=== PATIENT | female | born 1980 | race Caucasian/White ===

== ENCOUNTER 2017-10-27 16:10 | Day surgery (SDC) | payer OTHER ==
[2017-10-27 17:44] VITALS: BMI 27.4
[2017-10-27 17:55] LABS: Amnisure Internal Control QC ACCEPTABLE (ACCEPTABLE)
[2017-10-27 17:56] LABS: Amnisure Test No Membranes Rupture (No Rupture)
--- NOTE | 2017-10-27 19:16 | PRG ---
DATE OF SERVICE: 10/27/2017 OB ER ENCOUNTER PRIMARY HORTICULTURE SUPERVISOR: Dr. Harper Dyer MD CHIEF COMPLAINT: Diarrhea and abdominal pains. HISTORY OF PRESENT ILLNESS: The patient is a 37-year-old G1, P0 female with an intrauterine pregnanc y at 37 weeks and 5 days who is presenting to Labor and Delivery after experiencing for the last padmaja ral days loose stools that occurred about twice a day. The patient denies any sick contacts, fever, illness, any blood in her stool. The patient denies any nausea or vomiting, any fever, any chest lavell n. She has been experiencing some shortness of breath that she just attributes to the . Sh maynor does report that she has a rash on her arm that has been there for the last month or so. It does n ot itch and it just had some spots. The patient denies vaginal bleeding. She does report leaking fl uid for the last 3 weeks that she describes as water. PAST MEDICAL HISTORY: She has a history of migraines. PAST SURGICAL HISTORY: Negative. SOCIAL HISTORY: Denies drug, alcohol or tobacco use. ALLERGIES: No known drug allergies. MEDICATIONS: vitamins. OB LABS: Blood type, B positive. Diabetes screen, 142. Three-hour GTT with 1 abnormal finding. GB S unavailable. HIV nonreactive. Hepatitis B surface antigen nonreactive. She is RPR nonreactive, a ll in the first trimester. REVIEW OF SYSTEMS: Per HPI. PHYSICAL EXAMINATION: VITAL SIGNS: Blood pressure 105/64, heart rate of 75, respiratory rate of 16, temperature 97.6. GENERAL: She appears to be in no acute distress. She is alert and oriented, cooperative and pleasan t to interact with. HEENT: Normocephalic, atraumatic. CHEST: Clear to auscultation bilaterally. HEART: Regular rate and rhythm. ABDOMEN: Soft. She does have some tenderness consistent with ligament pain as she is tender with de viation of the uterus, mainly to the patient's right with pain on the left. Otherwise, abdomen is so ft. No suprapubic tenderness. EXTREMITIES: Nontender, nonedematous. PELVIC: Vulva is without masses, lesions or erythema. Vagina is moist, but has no pooling. Cervix is visibly closed. On digital exam, cervix is closed, thick and high. She does have quite a bit of tenderness along the vaginal wall, again consistent with ligament pain. heart tracing performed for abdominal pain in and baseline was noted to be in the 130 s with moderate long-term variability, positive accelerations, no decelerations. She does have some contractions on the tocometer, but not felt by the patient during our visit. AmniSure test was colle cted and is unavailable at the time of dictation. ASSESSMENT AND PLAN: The patient is a 37-year-old G1, P0 female with an intrauterine at 37 weeks and 5 days, presenting with diarrhea x2 days and abdominal pains that are consistent with musc uloskeletal pain of . The patient has no clinical evidence of rupture of membranes. There is an AmniSure test pending. Fetus has a reactive NST. Reassurance has been given to the patient. The patient has followup appointment on with Dr. Dyer. If testing were to come back posi tive, we would do a bedside ultrasound to look for a normal HALEIGH and observed the patient longer for r eevaluation. Otherwise, if it returns negative, the patient will be discharged to home with instruct ions to follow up with Dr. Dyer as scheduled
== END 2017-10-27 18:15 | disposition home health service (06) ==
LOC: L&D/OP 16:10
PROVIDERS: ATTEND Student in an Organized Health Care Education/Training Program
DX: O99.89 Other specified diseases and conditions complicating pregnancy, childbirth and the puerperium (principal); R10.9 Unspecified abdominal pain; R19.7 Diarrhea, unspecified; Z3A.37 37 weeks gestation of pregnancy
CPT/HCPCS: 84112; 99284

== ENCOUNTER 2017-11-07 00:32 | Inpatient (IN) | payer MEDICAID, OTHER, SELFPAY ==
[2017-11-07] MEDS ORDERED: Methylergonovine 0.2 MG/ML VIAL IM PRN (01:04)
[2017-11-07] MEDS ORDERED: Ondansetron HCl/PF 4 MG/2 ML Vial IVP PRN ×2 (01:04→19:37)
[2017-11-07] MEDS ORDERED: Diphenoxylate HCl/Atropine Tablet PO PRN ×2 (01:04)
[2017-11-07] MEDS ORDERED: Lidocaine 1% (PF) 30 ML VIAL SC PRN (01:04)
[2017-11-07] MEDS ORDERED: NS / Oxytocin 40 units/1000ml 1,000 ML IV PRN (01:04)
[2017-11-07] MEDS ORDERED: HYDROcodone/Acetaminophen 5/325 mg Tablet PO PRN ×2 (01:04)
[2017-11-07] MEDS ORDERED: Misoprostol 200 MCG TAB PR PRN (01:04)
[2017-11-07] MEDS ORDERED: Acetaminophen 500 MG TAB PO PRN (01:04)
[2017-11-07] MEDS ORDERED: Carboprost 250 MCG/ML AMP IM PRN (01:04)
[2017-11-07] MEDS ORDERED: Ibuprofen 800 MG TAB PO PRN (01:04)
[2017-11-07] MEDS ORDERED: Promethazine HCl 25 MG/ML VIAL IM PRN ×2 (01:04→19:37)
[2017-11-07] MEDS ORDERED: NS w/ Oxytocin 10 units 500 ML IV SCH ×2 (01:15→22:00)
--- NOTE | 2017-11-07 01:50 | PDOC.LDHP ---
Labor and Delivery H&P Chief complaint: loss of fluid HPI: 37 year old female at 39.2 wks by LMP/9.0 wk eric presents with loss of yellow tinged fluid since around 22:00 this evening. Patient states she noted the leaking and has been using a pad since that time. She denies any contractions, but endorses persistent low back pain. Patient denies vaginal bleeding and she denies vaginal discharge prior to leaking of fluid. Patient states this has been an uncomplicated . ROS: General: Denies fever or chills HEENT: Denies headaches or vision changes Cards: Denies chest pain or palpitations Resp: Denies shortness of breath or cough RUG REPAIRER: See above : Denies dysuria, endorses urinary frequency Current gestational age (weeks): 39 (39.2 wks) Due date: 11/12/17 Dating criteria: last menstrual period, first trimester ultrasound Grav: 1 Para: 0 Current complications: none Abnormal US findings: No Current medications: none Previous surgical history: none Allergies/Adverse Reactions: Allergies Allergy/AdvReac Type Severity Reaction Status Date / Time No Known Allergies Allergy Verified 11/07/17 03:17 Social history: none - Physical Exam Vital signs reviewed and normal: yes General: NAD Lungs: nonlabored breathing Abdomen: gravid Extremeties: no edema FHT: category 1, variability present [place] contractions every: q3min - Vaginal Exam cm dilated: 0 Effacement: 0% Station: -3 - OB Labs Blood type: B RH: positive Antibody Screen: unknown HIV: negative RPR: negative HEPSAg: negative 1 hour GCT: unknown GBS: negative Rubella: immune Additional Labs: GC/CT negative HPV negative - Assessment L&D Assessment: term rupture in membranes Pre-labor rupture of membranes - 22:00 on 11/07 - History consistent with SROM, yellow tinged fluid apparent on pads - Will admit patient to L&D - Plan to start cytotec - Active management sIUP - Plan as above Sharri Zepeda, DO PGY-2 - Plan Plan: admit to L&D
[2017-11-07 03:15] VITALS: BMI 28.7
[2017-11-07 03:19] LABS: Hemoglobin 14.1 g/dL (12.0-16.0); Mean Corpuscular HGB CONC 36.1 g/dL (32.0-36.0); Mean Corpuscular Hemoglobin 30.5 pg (27.0-31.0); Mean Corpuscular Volume 84.6 fL (78.0-98.0); Mean Platelet Volume 7.7 fL (7.4-10.4); Platelet Count 166 thou/uL (130-400); RBC Distribution Width 12.9 % (11.5-14.5); Red Blood Cell (RBC) Count 4.63 mill/uL (4.20-5.40); White Blood Cell (WBC) Count 10.6 thou/uL (4.8-10.8)
[2017-11-07] MEDS: Misoprostol 100 MCG TAB VAG SCH ×6 (03:30→22:58)
[2017-11-07] MEDS: Lactated Ringer's 1,000 ML IV SCH ×4 (03:30→22:20)
[2017-11-07 03:57] LABS: HBSAg Index 0.21 S/CO (0-0.99); Hep B Surf Ag Non-Reactive S/CO (NonReactive)
[2017-11-07] MEDS: Butorphanol Tartrate 1 MG/ML VIAL SLOW IVP PRN ×2 (04:45→14:34)
[2017-11-07 04:50] LABS: Syphilis Antibody Nonreactive (Nonreactive); Syphilis Antibody Index 0.04 S/CO (<1.00 Non-Reactive)
--- NOTE | 2017-11-07 13:47 | PDOC.LDPN ---
Labor & Delivery Progress Note - Subjective Subjective: painful contractions (more intense in the last 2 hours but still tolerable) - Objective Vital signs reviewed and normal: yes General: resting Uterine fundus: non tender Dilation: 1 Effacement: 50% Station: 0 FHT: category 1 [place] contractions every: 3-4min -: Cont ripening with additional dose of cytotec 50mcg orally, then pitocin induction due to TPROM at 39w. status reassuring, epidural as desired. GBS neg. Plan of care discussed.
[2017-11-07] MEDS ORDERED: Misoprostol 100 MCG TAB PO SCH (14:00)
[2017-11-07] MEDS ORDERED: Bupivacaine 0.5% 20 ML, fentaNYL Citrate/PF 400 MCG in Sodium Chloride 0.9% 72 ML EPIDURAL SCH (17:30)
[2017-11-07] MEDS ORDERED: Acetaminophen 325 MG TAB PO PRN (19:37)
[2017-11-07] MEDS ORDERED: diphenhydrAMINE 50 MG/ML VIAL IVP PRN (19:37)
[2017-11-07] MEDS ORDERED: Lactated Ringer's 500 ML IV PRN (19:37)
[2017-11-07] MEDS ORDERED: Eucerin (Mineral Oil/Petrolatum,White) 30 gm Jar TOP PRN (19:37)
[2017-11-07] MEDS ORDERED: Naloxone HCl 0.4 mg/ml Vial IVP PRN ×2 (19:37)
[2017-11-07] MEDS ORDERED: ePHEDrine/0.9% NaCl/PF SYRINGE 50 mg/10 ml SLOW IVP PRN (19:37)
[2017-11-07] MEDS ORDERED: fentaNYL Citrate/PF 400 MCG, Bupivacaine 0.5% 20 ML in Sodium Chloride 0.9% 72 ML EPIDURAL SCH (19:45)
[2017-11-07] MEDS ORDERED: Communication Order-Pharmacy FS SCH (19:45)
[2017-11-07] MEDS ORDERED: Terbutaline Sulfate 1 MG/ML VIAL ONE (23:59)
[2017-11-08] MEDS ORDERED: Terbutaline Sulfate 1 MG/ML VIAL SC SCH (00:30)
[2017-11-08] MEDS ORDERED: Bicitra 30 ML UDCUP ONE ×2 (01:42)
[2017-11-08] MEDS ORDERED: CEFAZOLIN/Water 2 GM/20 ML SYRINGE ONE (01:42)
[2017-11-08] MEDS ORDERED: Morphine PF 1 MG/ML SYR ONE (01:59)
[2017-11-08] MEDS ORDERED: Oxytocin 10 UNITS/ML VIAL ONE (02:00)
[2017-11-08] MEDS ORDERED: Ketorolac Tromethamine 30 MG/ML VIAL ONE ×2 (02:00→15:28)
[2017-11-08] MEDS ORDERED: Ondansetron HCl/PF 4 MG/2 ML Vial ONE ×2 (02:00→15:28)
[2017-11-08] MEDS ORDERED: Dexamethasone 4 mg/ml Vial ONE (02:00)
[2017-11-08] MEDS ORDERED: diphenhydrAMINE 50 MG/ML VIAL ONE ×2 (02:00→15:28)
[2017-11-08] MEDS ORDERED: Lidocaine 2% PF Inj 2 ML VIAL ONE ×2 (02:00→11:11)
[2017-11-08] MEDS ORDERED: PHENYLEPHRINE-NS 100 MCG/ML 10 ML SYRINGE ONE (02:00)
[2017-11-08] MEDS ORDERED: ePHEDrine/0.9% NaCl/PF SYRINGE 50 mg/10 ml ONE (02:00)
[2017-11-08] MEDS ORDERED: Midazolam HCl 2 mg/2 ml Vial ONE (02:19)
[2017-11-08 03:01] LABS: Actual Bicarbonate (HCO3a) 24.6 mEq/L (22-28); Analyzer IN Cardio OR; Base Excess (BEa) -1.9 mEq/L (-2.0 to +3.0)
--- NOTE | 2017-11-08 03:18 | PDOC.LDPN ---
Labor & Delivery Progress Note - Subjective Subjective: comfortable - Objective Vital signs reviewed and normal: yes General: NAD Uterine fundus: non tender Dilation: 3 Effacement: 75% Station: 0 FHT: category 2, late decelerations [place] contractions every: 3min Plan: resuscitative measures -: (late entry) Pt having persistent lates after epidural since 190 despite fluid bolus position change stopping pitocin, O2, ephedrine for BP, turning epidural down and terbutaline. Dispo for PCS due to NRFHT remote from delivery. R/B/A d/w pt and and they wish to proceed. All questions answered.
--- NOTE | 2017-11-08 03:19 | PDOC.OPDEL ---
OB Operative/Delivery Note Delivery Dr/Surgeon: Gomez Assist: Gillian Pre-Delivery Diagnosis: non-reassuring tracing Procedure/Post Delivery Dx: primary low transverse CS Weeks gestation: 39 Anesthesia: epidural - Findings A Sex: male - Additional Findings/Plan Placenta delivered: spontaneous findings: low transverse hysterotomy without extension, normal uterus, normal tubes, normal ovaries Estimated blood loss: normal q bl pending Post delivery plan: routine recovery
[2017-11-08] MEDS ORDERED: CEFAZOLIN/Water 2 GM/20 ML SYRINGE SLOW IVP SCH (04:00)
[2017-11-08] MEDS ORDERED: Azithromycin 500 MG in Sodium Chloride 0.9% 250 ML 250 ML IVPB SCH (04:00)
[2017-11-08] MEDS ORDERED: Bicitra 30 ML UDCUP PO SCH (04:00)
[2017-11-08] MEDS ORDERED: Promethazine HCl 25 MG SUPP PR PRN (04:46)
[2017-11-08] MEDS ORDERED: Meperidine HCl/PF 25 MG/ML VIAL SLOW IVP PRN (04:46)
[2017-11-08] MEDS ORDERED: diphenhydrAMINE 50 MG/ML VIAL IVP PRN (04:46)
[2017-11-08] MEDS ORDERED: Promethazine HCl 25 MG/ML VIAL IM PRN (04:46)
[2017-11-08] MEDS ORDERED: Ondansetron HCl/PF 4 MG/2 ML Vial IVP PRN ×3 (04:46→05:44)
[2017-11-08] MEDS ORDERED: Naloxone HCl 0.4 mg/ml Vial IV PRN (04:46)
[2017-11-08] MEDS ORDERED: Ketorolac Tromethamine 30 MG/ML VIAL IVP PRN (04:46)
[2017-11-08] MEDS ORDERED: Naloxone HCl 0.4 mg/ml Vial IVP PRN ×2 (04:46)
[2017-11-08] MEDS ORDERED: HYDROmorphone 2 MG/ML VIAL SLOW IVP PRN (04:46)
[2017-11-08] MEDS ORDERED: Eucerin (Mineral Oil/Petrolatum,White) 30 gm Jar TOP PRN (04:46)
[2017-11-08] MEDS ORDERED: Meperidine HCl/PF 25 MG/ML VIAL ONE ×2 (04:50→05:14)
--- NOTE | 2017-11-08 04:52 | OP ---
DATE OF ENCOUNTER: 11/08/2017 Patient is a 37-year-old female who underwent a primary for nonreassuring heart tones . Primary surgeon was Dr. Harper Dyer. Please see her operative findings for complete details. I served as her welder first class.
[2017-11-08] MEDS ORDERED: Ketorolac Tromethamine 30 MG/ML VIAL IVP SCH (05:00)
[2017-11-08] MEDS ORDERED: Communication Order-Pharmacy FS SCH (05:00)
[2017-11-08] MEDS: Misoprostol 100 MCG TAB VAG SCH ×2 (05:17→05:18)
[2017-11-08] MEDS ORDERED: HYDROcodone/Acetaminophen 5/325 mg Tablet PO PRN (05:44)
[2017-11-08] MEDS ORDERED: Adacel (T-DAP) 0.5 ML VIAL IM ONE (05:44)
[2017-11-08] MEDS ORDERED: Acetaminophen 325 MG TAB PO PRN (05:44)
[2017-11-08] MEDS ORDERED: Bisacodyl 10 MG SUPP PR PRN (05:44)
[2017-11-08] MEDS ORDERED: Lanolin Ointment 7 GM TUBE TOP PRN (05:44)
[2017-11-08] MEDS ORDERED: diphenhydrAMINE 25 MG CAP PO PRN (05:44)
[2017-11-08] MEDS ORDERED: Ibuprofen 800 MG TAB PO SCH (06:00)
[2017-11-08] MEDS ORDERED: NS / Oxytocin 40 units/1000ml 1,000 ML IV ONE (07:45)
[2017-11-08] MEDS ORDERED: Lactated Ringer's 1,000 ML IV SCH (07:45)
[2017-11-08] MEDS: Docusate Calcium (SURFAK) 240 MG CAP PO SCH ×2 (08:08→21:44)
[2017-11-08] MEDS: Ferrous Sulfate 325 MG TAB PO SCH ×2 (08:09→21:44)
[2017-11-08] MEDS: Prenatal Vitamin 1 TAB PO SCH (08:09)
[2017-11-08] MEDS ORDERED: Bupivacaine 0.25% HCL 30 ML VIAL ONE (11:11)
[2017-11-08] MEDS ORDERED: Dexamethasone 20 MG/5 ML VIAL ONE (15:28)
[2017-11-08] MEDS: HYDROcodone/Acetaminophen 5/325 mg Tablet PO PRN (16:17)
[2017-11-08] MEDS: Simethicone Chewable 80 MG TAB PO PRN (17:57)
[2017-11-08] MEDS: Ibuprofen 800 MG TAB PO SCH (21:45)
[2017-11-09] MEDS: Ibuprofen 800 MG TAB PO SCH ×3 (05:06→21:20)
[2017-11-09 06:10] LABS: Hemoglobin 11.3 g/dL (12.0-16.0); Mean Corpuscular HGB CONC 33.8 g/dL (32.0-36.0); Mean Corpuscular Hemoglobin 29.4 pg (27.0-31.0); Mean Platelet Volume 7.3 fL (7.4-10.4); Platelet Count 136 thou/uL (130-400); RBC Distribution Width 13.1 % (11.5-14.5); Red Blood Cell (RBC) Count 3.84 mill/uL (4.20-5.40); White Blood Cell (WBC) Count 10.3 thou/uL (4.8-10.8)
--- NOTE | 2017-11-09 07:38 | PDOC.PP ---
Post Progress Note Post Day #: 1 PO intake tolerated: yes Flatus: yes Ambulation: yes Vital Signs (12 hours) Temp Pulse Resp 11/08/17 20:00 98.8 F 79 18 Weight Weight 152 lb - Physical Examination General: NAD Cardiovascular: RRR Respiratory: non-labored breathing Abdominal: no distention, appropriately TTP Fundus firm & at: umb-2 Extremities: negative homans (B) Skin: CS incision dry & intact Neurological: no gross focal deficits Psychiatric: normal affect Result Diagrams: 11/09/17 05:49 Additional Labs: Post Labs Blood Type B POSITIVE 11/07/17 02:57 Hep Bs Antigen Non-Reactive S/CO (NonReactive) 11/07/17 02:57
[2017-11-09] MEDS: Docusate Calcium (SURFAK) 240 MG CAP PO SCH (09:31)
[2017-11-09] MEDS: Ferrous Sulfate 325 MG TAB PO SCH (09:31)
[2017-11-09] MEDS: Prenatal Vitamin 1 TAB PO SCH (09:31)
[2017-11-09] MEDS: HYDROcodone/Acetaminophen 5/325 mg Tablet PO PRN ×2 (11:20→19:11)
[2017-11-09] MEDS: Simethicone Chewable 80 MG TAB PO PRN ×2 (11:23→19:11)
--- NOTE | 2017-11-09 13:29 | PDOC.PP ---
Post Progress Note Post Day #: 2 PO intake tolerated: yes Flatus: yes Ambulation: yes Vital Signs (12 hours) Temp Pulse Resp BP 11/09/17 12:00 97.7 F 82 18 112/54 L 11/09/17 09:00 98.3 F 78 18 106/56 L 11/09/17 08:00 98.8 F 79 18 11/09/17 04:00 98.8 F 79 18 Weight Weight 152 lb - Physical Examination General: NAD Cardiovascular: RRR Respiratory: non-labored breathing Abdominal: no distention, appropriately TTP Fundus firm & at: umb Skin: CS incision dry & intact Neurological: no gross focal deficits Psychiatric: normal affect Result Diagrams: 11/09/17 05:49 Additional Labs: Post Labs Blood Type B POSITIVE 11/07/17 02:57 Hep Bs Antigen Non-Reactive S/CO (NonReactive) 11/07/17 02:57 (1) Term Code(s): Z34.80 - ENCOUNTER FOR SUPRVSN OF NORMAL , UNSP TRIMESTER Status: Acute (2) Non-reassuring electronic monitoring tracing Code(s): O76 - ABNLT IN HEART RATE AND RHYTHM COMP LABOR AND DELIVERY Status: Acute - Assessment/Plan POD1 s/p PCS for NRFHT at 39w VSSAF Doing well appropriate milestones Rh pos RImm Cont postop care
[2017-11-10] MEDS: Docusate Calcium (SURFAK) 240 MG CAP PO SCH ×3 (01:39→21:01)
[2017-11-10] MEDS: Ferrous Sulfate 325 MG TAB PO SCH ×3 (01:39→21:00)
[2017-11-10] MEDS: Ibuprofen 800 MG TAB PO SCH ×3 (06:10→21:00)
--- NOTE | 2017-11-10 08:07 | PDOC.PP ---
Post Progress Note Post Day #: 2 PO intake tolerated: yes Flatus: yes Ambulation: yes Vital Signs (12 hours) Temp Pulse Resp BP 11/10/17 00:40 97.7 F 67 18 166/66 H Weight Weight 152 lb - Physical Examination General: NAD Cardiovascular: RRR Respiratory: non-labored breathing Abdominal: no distention, appropriately TTP Fundus firm & at: umb-2 Skin: CS incision dry & intact, no rash Neurological: no gross focal deficits Psychiatric: normal affect Result Diagrams: 11/09/17 05:49 Additional Labs: Post Labs Blood Type B POSITIVE 11/07/17 02:57 Hep Bs Antigen Non-Reactive S/CO (NonReactive) 11/07/17 02:57 (1) Term Code(s): Z34.80 - ENCOUNTER FOR SUPRVSN OF NORMAL , UNSP TRIMESTER Status: Acute (2) Non-reassuring electronic monitoring tracing Code(s): O76 - ABNLT IN HEART RATE AND RHYTHM COMP LABOR AND DELIVERY Status: Acute - Assessment/Plan POD2 s/p PCS for NRFHT at 39w following TPROM VSSAF Doing well met all milestones, pain improved this am. C/o loose stools over night, stool softner held, no e/o gastroenteritis, will cont to observe Rh pos RImm Home tomorrow, cont current care. FU 2 wk
[2017-11-10] MEDS: Prenatal Vitamin 1 TAB PO SCH (09:12)
--- NOTE | 2017-11-10 14:10 | OP ---
DATE OF OPERATION: 11/08/2017 PREOPERATIVE DIAGNOSES: 1. Intrauterine at 39 weeks and 3 days. 2. Term prolonged rupture of membranes. 3. Non-reassuring heart tones remote from delivery. POSTOPERATIVE DIAGNOSES: 1. Intrauterine at 39 weeks and 3 days. 2. Term prolonged rupture of membranes. 3. Non-reassuring heart tones remote from delivery. PROCEDURE: Primary low transverse section via Pfannenstiel skin incision. ANESTHESIA: Epidural. ATTENDING SURGEON: Harper Dyer M.D. HEEL COVERER MACHINE OPERATOR SURGEON: Eliud French. ESTIMATED BLOOD LOSS: Normal. Quantitative blood loss is pending. COMPLICATIONS: None. DRAINS: Charles catheter. PATHOLOGY: None. FINDINGS: Male , cephalic presentation, no nuchal cord. Apgars and weight are currently pendi ng. Baby A was asynclitic presentation. The hysterotomy was without extension and the uterus, fallo pian tubes and ovaries were normal appearing. OPERATIVE TECHNIQUE: The patient was taken to the operating room where epidural anesthesia was found to be adequate. The patient was prepped and draped in a sterile fashion in the dorsal supine positi on with a leftward tilt. After ensuring adequacy of anesthesia, a Pfannenstiel skin incision was mad e and carried down to the underlying subcutaneous tissue with a Bovie. The fascia was nicked in the midline with the knife and carried laterally with the Chavez scissors. The superior aspect of the fasc ia was tented with 2 Kochers and dissected off the rectus bluntly. The inferior aspect of the fascia was tented with 2 Kochers and dissected off the rectus down to the pubic symphysis. The peritoneum was bluntly entered into and manually retracted. The Huy O retractor was placed. The lower uteri ne segment was incised in a transverse fashion and extended with the Morris maneuver. The 's hea d was brought to the hysterotomy and infant was delivered atraumatically. The 's cord was clam ped, cord gas was obtained as well as cord blood, the placenta was allowed to spontaneously deliver a nd then discarded. The uterus was exteriorized, cleared of all clots and debris and the posterior cu l-de-sac was lapped out. The uterus was placed back into the abdomen and hysterotomy was clamped wit h ring forceps and reapproximated with #1 Monocryl in a running locking fashion with hemostasis noted . The irrigation was then performed of the pelvis and again the hysterotomy was noted to be hemostat ic. The Huy O retractor was removed out of the patient and the rectus muscles were examined and n oted to be hemostatic. The fascia was reapproximated with a #1 PDS in a running fashion with excelle nt reapproximation x2 sutures. The subcutaneous tissue was irrigated and cauterized of any bleeders and reapproximated with a 2-0 plain gut in a running fashion. Skin was closed with 4-0 Monocryl in a subcuticular fashion. Dermabond was applied as well as a pressure dressing. The patient tolerated procedure well. Sponge, lap, needle count correct x2. The patient was taken to recovery in stable c ondition. Patient received Ancef 2 grams prior to procedure and will receive azithromycin 500 mg for extended spectrum prophylaxis in the recovery room.
[2017-11-11 07:56] VITALS: BP 106/58; TEMP 98.8
--- NOTE | 2017-11-11 10:15 | PDOC.PP ---
Post Progress Note Post Day #: 3 PO intake tolerated: yes Flatus: yes Ambulation: yes Vital Signs (12 hours) Temp Pulse Resp BP 11/11/17 07:55 98.8 F 63 20 106/58 L Weight Weight 152 lb - Physical Examination General: NAD Cardiovascular: RRR Respiratory: non-labored breathing Abdominal: no distention, appropriately TTP Fundus firm & at: umb-2 Extremities: negative homans (B) Skin: CS incision dry & intact Neurological: no gross focal deficits Psychiatric: normal affect Result Diagrams: 11/09/17 05:49 Additional Labs: Post Labs Blood Type B POSITIVE 11/07/17 02:57 Hep Bs Antigen Non-Reactive S/CO (NonReactive) 11/07/17 02:57 (1) Term Code(s): Z34.80 - ENCOUNTER FOR SUPRVSN OF NORMAL , UNSP TRIMESTER Status: Acute (2) Non-reassuring electronic monitoring tracing Code(s): O76 - ABNLT IN HEART RATE AND RHYTHM COMP LABOR AND DELIVERY Status: Acute - Assessment/Plan POD3 s/p PCS for NRFHT VSSAF Doing well, abd cramping improved, no further diarrhea, pain controlled, met all milestones. Rh pos Yovanim DC home FU 2 wk for inc check
[2017-11-11] MEDS: Docusate Calcium (SURFAK) 240 MG CAP PO SCH (10:23)
[2017-11-11] MEDS: Ferrous Sulfate 325 MG TAB PO SCH (10:24)
[2017-11-11] MEDS: Prenatal Vitamin 1 TAB PO SCH (10:24)
[2017-11-11] MEDS: Ibuprofen 800 MG TAB PO SCH ×2 (10:26→13:36)
[2017-11-11] MEDS ORDERED: Acetaminophen 500 MG TAB PO SCH (12:15)
== END 2017-11-11 15:44 | disposition home or self-care (01) | DRG 766 ==
LOC: L&D/OP 00:32 → L&D 02:54 → 3SW 11-08 05:40
PROVIDERS: ADMIT Student in an Organized Health Care Education/Training Program; ATTEND Student in an Organized Health Care Education/Training Program
PROC: 10D00Z1 Extraction of Products of Conception, Low, Open Approach (ICD-10-PCS; principal; 2017-11-08)
PROC: 4A0HXCZ Measurement of Products of Conception, Cardiac Rate, External Approach (ICD-10-PCS; 2017-11-08)
DX: O76 Abnormality in fetal heart rate and rhythm complicating labor and delivery (principal); Z3A.39 39 weeks gestation of pregnancy; Z37.0 Single live birth
CPT/HCPCS: 36415; 51702; 82805; 85027; 86780; 86850; 86900; 86901; 87340; 99285; J0456; J0595; J1100; J1200; J1885; J2001; J2175; J2250; J2274; J2405; J2550; J2590; J3010; J3105; J3490; J7050; S0020

== ENCOUNTER 2018-02-09 13:33 | Emergency (ER) | payer MEDICAID, OTHER ==
--- NOTE | 2018-02-09 15:07 | CT ---
CT BRAIN: Date: 02-09-18 Provided Clinical History: Head pain status post injury. FINDINGS: The ventricular system appears normal in size and morphology. There is no evidence for intracranial h emorrhage or mass effect. The extracranial soft tissues and osseous structures demonstrate an unremar kable CT appearance. IMPRESSION: No evidence for intracranial hemorrhage or mass effect. POS: [facility]
--- NOTE | 2018-02-09 15:16 | CT ---
CT FACIAL BONES: Date: 02-09-18 Provided Clinical History: Pain status post injury. FINDINGS: There is no evidence for fracture. The paranasal sinuses appear clear. The globes and other orbital c ontents appear normal. IMPRESSION: No evidence for fracture. POS: [facility]
[2018-02-09] MEDS ORDERED: HYDROcodone/Acetaminophen 5/325 mg Tablet ONE (15:25)
== END 2018-02-09 15:29 | disposition home or self-care (01) ==
LOC: SCSER 13:33
DX: S00.33XA Contusion of nose, initial encounter (principal); F32.9 Major depressive disorder, single episode, unspecified; F17.210 Nicotine dependence, cigarettes, uncomplicated; Z79.899 Other long term (current) drug therapy; W51.XXXA Accidental striking against or bumped into by another person, initial encounter
CPT/HCPCS: 70450; 70486

== ENCOUNTER 2019-08-31 13:09 | Outpatient (CLI) | payer OTHER ==
--- NOTE | 2019-08-31 13:29 | RAD ---
EXAM: Chest 2 views: HISTORY: Shortness of breath for 2 weeks COMPARISON: None. FINDINGS: There is a normal-sized cardiomediastinal silhouette. There is no evidence of consolidation, mass, or pleural effusion. The bones are unremarkable. IMPRESSION: No evidence of acute cardiopulmonary disease
--- NOTE | 2019-08-31 14:22 | ULT ---
TRANSABDOMINAL AND TRANSVAGINAL PELVIC ULTRASOUND WITH DOWNEY SCALE, COLOR FLOW AND SPECTRAL DOPPLER IM AGIN08/31/19 HISTORY: 39-year-old female with pelvic pain. FINDINGS: The uterus measures 7.9 x 2.8 x 4.2 cm without focal mass or endometrial fluid. The endometrium measu res 6 mm in thickness. The right ovary measures 2.9 x 1.3 x 2.8 cm and the left ovary measures 2.5 x 1.5 x 2.3 cm. Flow is d emonstrated to both ovaries. No adnexal masses or free fluid in the cul-de-sac is seen. An IUD is pr esent. IMPRESSION: Normal exam. POS: [facility]
== END 2019-08-31 13:10 | disposition home or self-care (01) ==
LOC: SCSULT 13:09
PROVIDERS: ATTEND Family Medicine
DX: R10.2 Pelvic and perineal pain (principal); R06.00 Dyspnea, unspecified
CPT/HCPCS: 71046; 76856